=== PATIENT | female | born 1985 | race African-American/Black ===

== ENCOUNTER 2018-03-21 17:19 | Emergency (ER) | payer MEDICAID ==
[~2018-03-21] VITALS: Ht 162.6 cm; Wt 59.0 kg
[~2018-03-21 17:19] MED LIST: ASPI-1160; IBUP-2437; peptobismol
[2018-03-21 21:33] LABS: BASOPHILS % 1.1 % (0.0-2.0); EOSINOPHILS % 0.9 % (0.0-5.0); HEMATOCRIT. 32.6 % (36.0-48.0); HEMOGLOBIN. 10.5 g/dL (12.0-16.0); LYMPHOCYTES % 42.5 % (20.0-50.0); MEAN CORPUSCULAR HEMOGLOBIN 27.5 pg (28.0-32.0); MEAN CORPUSCULAR VOLUME 85.2 fL (81.0-99.0); MONOCYTES % 9.1 % (2.0-8.0); NEUTROPHILS % 46.4 % (40.0-76.0); PLATELET 421 x1000/uL (130-400); RED BLOOD CELL COUNT 3.83 mill/uL (4.2-5.4); RED CELL DISTRIBUTION WIDTH 16.7 % (11.6-14.6)
[2018-03-21 21:37] LABS: CHLORIDE 104 mEq/L (98-107)
[2018-03-21 21:41] LABS: PROTHROMBIN TIME 10.3 sec (9.1-11.1)
[2018-03-22] MEDS ORDERED: METOCLOPRAMIDE HCL 5MG TABLET PO ONE (01:45)
[2018-03-22] MEDS ORDERED: DIPHENHYDRAMINE 25MG CAPSULE PO ONE (01:45)
[2018-03-22] MEDS ORDERED: IBUPROFEN 600MG TABLET PO ONE (04:00)
[2018-03-22 04:10] LABS: CLARITY URINE CLEAR (CLEAR); COLOR URINE YELLOW (YELLOW); KETONES URINE NEGATIVE (NEGATIVE); LEUKOCYTE ESTERASE URINE NEGATIVE (NEGATIVE); NITRITE URINE NEGATIVE (NEGATIVE); OCCULT BLOOD URINE NEGATIVE (NEGATIVE); PH URINE 6.5 (4.5-8.0); PROTEIN URINE NEGATIVE (NEGATIVE); SPECIFIC GRAVITY URINE 1.018 (1.005-1.030)
[2018-03-22 04:18] LABS: *AMPHETAMINES SCREEN URINE NEGATIVE (NEGATIVE)
[2018-03-22 04:19] LABS: *BARBITURATES SCREEN URINE NEGATIVE (NEGATIVE); *BENZODIAZEPINES SCREEN URINE NEGATIVE (NEGATIVE); *COCAINE SCREEN URINE NEGATIVE (NEGATIVE); CANNABINOID URINE SCREEN NEGATIVE (NEGATIVE); METHADONE URINE SCREEN NEGATIVE (NEGATIVE); PHENCYCLIDINE URINE SCREEN NEGATIVE (NEGATIVE)
[2018-03-22 04:21] LABS: OPIATES URINE SCREEN NEGATIVE (NEGATIVE)
[2018-03-22 05:00] VITALS: BP 115/66
== END 2018-03-22 06:06 | disposition home or self-care (01) ==
LOC: ER 17:19
DX: R51 Headache (principal); R07.9 Chest pain, unspecified; F17.200 Nicotine dependence, unspecified, uncomplicated; R11.0 Nausea; H53.149 Visual discomfort, unspecified; Z79.899 Other long term (current) drug therapy
CPT/HCPCS: 36415; 70450; 71045; 80053; 80305; 81003; 81025; 83690; 85025; 85610; 93005; 99285; J8597; Q0163

== ENCOUNTER 2019-05-12 22:43 | Emergency (ER) | payer MEDICAID, OTHER ==
[~2019-05-12] VITALS: Ht 160 cm; Wt 58.0 kg
[2019-05-12] MEDS ORDERED: IBUPROFEN 400MG TABLET PO ONE (23:45)
[2019-05-13 00:48] VITALS: BP 94/65
== END 2019-05-13 00:48 | disposition home or self-care (01) ==
LOC: ER 23:25
DX: S16.1XXA Strain of muscle, fascia and tendon at neck level, initial encounter (principal); S29.012A Strain of muscle and tendon of back wall of thorax, initial encounter; F17.200 Nicotine dependence, unspecified, uncomplicated; Z98.890 Other specified postprocedural states; X58.XXXA Exposure to other specified factors, initial encounter; Y93.89 Activity, other specified; Y92.89 Other specified places as the place of occurrence of the external cause; Y99.8 Other external cause status
CPT/HCPCS: 99283

== ENCOUNTER 2019-05-14 13:39 | Emergency (ER) | payer OTHER, MEDICAID ==
[~2019-05-14] VITALS: Ht 160 cm; Wt 58.0 kg
[2019-05-14] MEDS ORDERED: LIDOCAINE 5% PATCH TOP STA (14:33)
[2019-05-14] MEDS ORDERED: IBUPROFEN 800MG TABLET PO ONE (14:45)
[2019-05-14 15:49] LABS: CHLORIDE 108 mEq/L (98-107); EOSINOPHILS % 1.7 % (0.0-5.0); HEMATOCRIT. 42.4 % (36.0-48.0); HEMOGLOBIN. 14.3 g/dL (12.0-16.0); LYMPHOCYTES % 42.6 % (20.0-50.0); MEAN CORPUSCULAR HEMOGLOBIN 32.6 pg (28.0-32.0); MEAN CORPUSCULAR VOLUME 96.6 fL (81.0-99.0); MEAN PLATELET VOLUME 6.9 fl (7.4-10.4); MONOCYTES % 11.6 % (2.0-8.0); NEUTROPHILS % 43.1 % (40.0-76.0); PLATELET 337 x1000/uL (130-400); RED BLOOD CELL COUNT 4.39 mill/uL (4.2-5.4); RED CELL DISTRIBUTION WIDTH 15.9 % (11.6-14.6)
[2019-05-14 15:57] LABS: HCG SCREEN NEGATIVE
[2019-05-14] MEDS ORDERED: IOHEXOL-350 100 ML BOTTLE ONE (18:02)
[2019-05-14 19:29] VITALS: BP 112/76
== END 2019-05-14 19:30 | disposition home or self-care (01) ==
LOC: ER 13:39
DX: M54.2 Cervicalgia (principal); E04.9 Nontoxic goiter, unspecified; F17.210 Nicotine dependence, cigarettes, uncomplicated; Z98.890 Other specified postprocedural states; Z79.82 Long term (current) use of aspirin
CPT/HCPCS: 36415; 70496; 70498; 71045; 80053; 81025; 84484; 84703; 85025; 93005; 99284; Q9967

== ENCOUNTER 2019-06-19 18:36 | Emergency (ER) | payer OTHER, MEDICAID ==
[~2019-06-19] VITALS: Ht 165.1 cm; Wt 85.0 kg
[2019-06-19 18:50] VITALS: BP 102/79
== END 2019-06-19 22:10 | disposition left against medical advice (07) ==
LOC: ER 18:36
DX: Z53.21 Procedure and treatment not carried out due to patient leaving prior to being seen by health care provider (principal)

== ENCOUNTER 2021-04-12 23:24 | Emergency (ER) | payer MEDICAID, OTHER ==
[~2021-04-12] VITALS: Ht 170.2 cm; Wt 64.0 kg
[2021-04-12 23:29] VITALS: BP 117/80
== END 2021-04-13 00:23 | disposition left against medical advice (07) ==
LOC: ER 23:24
DX: R07.89 Other chest pain (principal); F17.210 Nicotine dependence, cigarettes, uncomplicated; Z79.82 Long term (current) use of aspirin
CPT/HCPCS: 93005; 99283

== ENCOUNTER 2021-04-13 20:08 | Emergency (ER) | payer MEDICAID ==
[~2021-04-13] VITALS: Ht 160 cm; Wt 59.0 kg
[2021-04-13] MEDS ORDERED: ASPIRIN 81MG TABLET PO ONE (22:15)
[2021-04-13] MEDS ORDERED: NITROGLYCERIN 0.4MG TABLET SL SL PRN (22:15)
[2021-04-13] MEDS ORDERED: IBUPROFEN 600MG TABLET PO ONE (23:00)
[2021-04-13 23:07] LABS: BASOPHILS % 0.9 % (0.0-2.0); EOSINOPHILS % 1.4 % (0.0-5.0); HEMATOCRIT. 33.1 % (36.0-48.0); LYMPHOCYTES % 37.3 % (20.0-50.0); MEAN CORPUSCULAR HEMOGLOBIN 29.7 pg (28.0-32.0); MEAN CORPUSCULAR VOLUME 89.5 fL (81.0-99.0); MEAN PLATELET VOLUME 6.6 fl (7.4-10.4); MONOCYTES % 9.4 % (2.0-8.0); PLATELET 355 x1000/uL (130-400); RED BLOOD CELL COUNT 3.69 mill/uL (4.2-5.4)
[2021-04-13 23:12] LABS: CHLORIDE 110 mEq/L (98-107)
[2021-04-13 23:14] LABS: HCG SCREEN NEGATIVE
[2021-04-14] MEDS ORDERED: ACETAMINOPHEN 325MG TABLET PO ONE (00:15)
[2021-04-14 04:30] VITALS: BP 139/68
== END 2021-04-14 05:00 | disposition still patient (30) ==
LOC: ER 20:08
DX: R07.9 Chest pain, unspecified (principal); D64.9 Anemia, unspecified; F17.210 Nicotine dependence, cigarettes, uncomplicated; Z79.82 Long term (current) use of aspirin; Z98.890 Other specified postprocedural states
CPT/HCPCS: 36415; 71045; 80053; 83880; 84484; 84703; 85025; 93005; 99285; Z7610

== ENCOUNTER 2022-02-10 10:14 | Emergency (ER) | payer MEDICAID, OTHER ==
[~2022-02-10] VITALS: Ht 172.7 cm; Wt 58.0 kg
[2022-02-10 10:17] VITALS: BP 111/68
== END 2022-02-10 11:59 | disposition home or self-care (01) ==
LOC: ER 10:14
DX: S40.011A Contusion of right shoulder, initial encounter (principal); S09.90XA Unspecified injury of head, initial encounter; Z98.890 Other specified postprocedural states; Y04.0XXA Assault by unarmed brawl or fight, initial encounter; Y93.89 Activity, other specified; Y92.89 Other specified places as the place of occurrence of the external cause; Y99.8 Other external cause status
CPT/HCPCS: 99281

== ENCOUNTER 2022-10-06 09:57 | Emergency (ER) | payer MEDICAID ==
[~2022-10-06] VITALS: Ht 167.6 cm; Wt 70.0 kg
[2022-10-06 10:04] VITALS: BP 104/69
[2022-10-06] MEDS ORDERED: IBUPROFEN 600MG TABLET PO STA (10:10)
[2022-10-06] MEDS ORDERED: ACETAMINOPHEN WITH CODEINE 300/30MG TABLET PO ONE (14:15)
[2022-10-06] MEDS ORDERED: IBUPROFEN 600MG TABLET PO NR (14:15)
[2022-10-06] MEDS ORDERED: IMIT25 MT (15:10)
== END 2022-10-06 15:21 | disposition home or self-care (01) ==
LOC: ER 09:57
DX: R51.9 Headache, unspecified (principal); D64.9 Anemia, unspecified; Z98.890 Other specified postprocedural states
CPT/HCPCS: 81025; 99284

== ENCOUNTER 2022-10-20 23:37 | Emergency (ER) | payer MEDICAID ==
[~2022-10-20] VITALS: Ht 160 cm; Wt 61.2 kg
[~2022-10-20 23:37] MED LIST changes: +IMIT25 MT
[2022-10-21] MEDS ORDERED: IBUPROFEN 600MG TABLET PO STA (01:54)
[2022-10-21] MEDS ORDERED: BACITRACIN ZINC OINT UDPKT TOP ONE (02:00)
[2022-10-21] MEDS ORDERED: LIDOCAINE HCL/PF 1% 10 MG/ML 5ML VIAL INFIL ONE (02:00)
[2022-10-21] MEDS ORDERED: TETANUS, DIPHTHERIA, PERTUSSIS VAC/PF 0.5ML (>10YR OLD) IM ONE (02:15)
[2022-10-21 03:00] VITALS: BP 119/83
[2022-10-21] MEDS ORDERED: NAPR-681 PO (03:43)
== END 2022-10-21 03:55 | disposition home or self-care (01) ==
LOC: ER 23:37
DX: S51.812A Laceration without foreign body of left forearm, initial encounter (principal); S50.12XA Contusion of left forearm, initial encounter; R10.12 Left upper quadrant pain; Y00.XXXA Assault by blunt object, initial encounter; Y07.499 Other family member, perpetrator of maltreatment and neglect; Y93.89 Activity, other specified; Y92.018 Other place in single-family (private) house as the place of occurrence of the external cause
CPT/HCPCS: 73090; 81025; 90471; 90715; 99283; J3490; Z7610

== ENCOUNTER 2022-10-24 19:48 | Emergency (ER) | payer MEDICAID ==
[~2022-10-24] VITALS: Ht 162.6 cm; Wt 62.3 kg
[~2022-10-24 19:48] MED LIST changes: +NAPR-681 PO
[2022-10-24 19:51] VITALS: BP 104/62
== END 2022-10-25 01:20 | disposition left against medical advice (07) ==
LOC: ER 20:31
DX: Z53.21 Procedure and treatment not carried out due to patient leaving prior to being seen by health care provider (principal)
CPT/HCPCS: 99281

== ENCOUNTER 2022-10-29 10:43 | Emergency (ER) | payer MEDICAID ==
[~2022-10-29] VITALS: Ht 162.6 cm; Wt 60.0 kg
[2022-10-29 11:03] VITALS: BP 106/76
== END 2022-10-29 16:49 | disposition left against medical advice (07) ==
LOC: ER 10:52
DX: Z53.21 Procedure and treatment not carried out due to patient leaving prior to being seen by health care provider (principal)
CPT/HCPCS: 99281